=== PATIENT | male | born 1945 | race Caucasian/White ===

== ENCOUNTER 2019-05-10 23:22 | Observation (INO) | payer MEDICARE ==
[~2019-05-10] VITALS: Ht 167.7 cm; Wt 86.0 kg
[~2019-05-10 23:22] MED LIST: ASP81TEC PO; ATEN50TA PO; ATOR10TA66 PO; CEPH500C PO; CLOP75TA PO; HYDR12.56 PO; LISI1TAB PO; LISI20TA PO; LISINOPRIL; SILD50TA PO; SIMV20TA3 PO; TICA90TA PO; TRAM50TA2 PO
--- NOTE | 2019-05-10 23:59 | ED Chest Pain ---
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 PT STATES HE JUST RETURNED FROM [place] AND HE THINKS HE MAY HAVE CAUGHT A COLD. Nursing Sepsis Screen: No Definite Risk History of Present Illness Date Seen by Provider: May 10, 2019 Time Seen by Provider: 23:30 Initial Comments The patient is a 74-year-old male with a history of hypertension, hyperlipidemia, coronary artery disease status post TN and stenting 2, history of prior ischemic stroke which apparently occurred during a heart catheterization. The patient presents with concern for acute onset of dull, substernal, pressurelike, band-like exertional chest discomfort with onset about 3 hours prior to arrival. Patient states he had been doing some relatively heavy exertion, moving boxes about at his home, when he noticed acute onset of the above chest pain. Discomfort was nonradiating, about 8/10 in severity, and it seemed to get better with rest and in fact is only a 1-2 out of 10 in severity now. Associated nausea but no vomiting. No associated fevers, cough, shortness of breath, cold sweats or chills, abdominal pain, flank pain, back austin n. Patient is resting comfortably in no acute distress upon initial evaluation in the emergency department and vital signs are appropriate aside from a degree of hypertension. Allergies and Home Medications Allergies Coded Allergies: No Known Drug Allergies (Unverified , 07/19/10) Home Medications Aspirin 81 Mg Tabec, 81 MG PO DAILY, (Reported) Atenolol 50 Mg Tablet, 50 MG PO DAILY, (Reported) Atorvastatin Calcium 10 Mg Tablet, 10 MG PO DAILY Prescribed by: JAIME RAJPUT on 03/05/15 1226 Clopidogrel Bisulfate 75 Mg Tablet, 75 MG PO DAILY, (Reported) Hctz/Lisinopril 1 Each Tablet, 1 TAB PO DAILY, (Reported) Patient Home Medication List Home Medication List Reviewed: Yes Review of Systems Review of Systems Constitutional: see HPI All Other Systems Reviewed Negative Unless Noted: Yes (Negative excepted noted.) Past Hspsaey-Ogvzgt-Snvhgn Hx Past Med/Social Hx: Reviewed Nursing Past Med/Soc Hx Patient Social History Recent Foreign Travel: No Contact w/Someone Who Travel: No Recent Infectious Disease Expo: No Physical Abuse: No Sexual Abuse: No Mistreated: No Fear: No Immunizations Up To Date Tetanus Booster (TDap): Less than 5yrs Seasonal Allergies Seasonal Allergies: No Past Medical History Appendectomy, Cardiac, CABG, Coronary Stent, Pancreatic COPD Currently Using CPAP: No Currently Using BIPAP: No Coronary Artery Disease, Heart Attack, High Cholesterol, Hypertension Headaches /Migraines, Seizure Disorder Reproductive Disorders: No Sexually Transmitted Disease: No HIV/AIDS: No Kidney Stones Gastroesophageal Reflux, Liver Disease/Jaundice, Pancreatitis, Hepatitis, Gall Bladder Disease Degenerate Disk Disease, Back Injury, Chronic Back Pain Family Medical History Reviewed Nursing Family Hx Cardiovascular disease 19 FATHER Completed stroke 19 FATHER Diabetes mellitus G8 SISTER Myocardial infarction 19 FATHER 19 MOTHER Physical Exam Vital Signs Vital Signs - First Documented 05/10/19 23:41 Temp 37.0 Pulse 70 Resp 17 B/P (MAP) 175/81 (112) O2 Delivery Room Air Capillary Refill : Less Than 3 Seconds Height, Weight, BMI Height: 5'6.00" Weight: 186lbs. 12.0oz. 84.966709vy; 31.00 BMI Method:Stated General Appearance: No Apparent Distress Other comments This is an elderly male appearing nontoxic and in no acute distress. Head is normocephalic and atraumatic. Neck is supple and nontender. Oropharynx is moist. Lungs clear to auscultation in all stations. There is a normal S1 and S2 without rubs or gallops and capillary refill is appropriate, less than 2 seconds globally. Pulses are equal in bilateral upper and lower extremities. Abdomen is soft, nontender and nondistended. Skin is warm and dry without cyanos is, clubbing or edema. Psychiatrically, the patient demonstrated appropriate mood and affect and is alert. Progress/Results/Core Measures Results/Orders Lab Results Laboratory Tests Test 05/10/19 00:01 Range/Units White Blood Count 9.0 4.3-11.0 10^3/uL Red Blood Count 3.98 L 4.35-5.85 10^6/uL Hemoglobin 14.0 13.3-17.7 G/DL Hematocrit 40 40-54 % Mean Corpuscular Volume 101 H 80-99 FL Mean Corpuscular Hemoglobin 35 H 25-34 PG Mean Corpuscular Hemoglobin Concent 35 32-36 G/DL Red Cell Distribution Width 13.7 10.0-14.5 % Platelet Count 166 130-400 10^3/uL Mean Platelet Volume 10.3 7.4-10.4 FL Neutrophils (%) (Auto) 80 H 42-75 % Lymphocytes (%) (Auto) 10 L 12-44 % Monocytes (%) (Auto) 9 0-12 % Eosinophils (%) (Auto) 0 0-10 % Basophils (%) (Auto) 0 0-10 % Neutrophils # (Auto) 7.2 1.8-7.8 X 10^3 Lymphocytes # (Auto) 0.9 L 1.0-4.0 X 10^3 Monocytes # (Auto) 0.8 0.0-1.0 X 10^3 Eosinophils # (Auto) 0.0 0.0-0.3 10^3/uL Basophils # (Auto) 0.0 0.0-0.1 10^3/uL Prothrombin Time 13.2 12.2-14.7 SEC INR Comment 1.0 0.8-1.4 Activated Partial Thromboplast Time 27 24-35 SEC Sodium Level 139 135-145 MMOL/L Potassium Level 4.1 3.6-5.0 MMOL/L Chloride Level 103 98-107 MMOL/L Carbon Dioxide Level 22 21-32 MMOL/L Anion Gap 14 5-14 MMOL/L Blood Urea Nitrogen 14 7-18 MG/DL Creatinine 0.95 0.60-1.30 MG/DL Estimat Glomerular Filtration Rate > 60 BUN/Creatinine Ratio 15 Glucose Level 117 H 70-105 MG/DL Calcium Level 9.3 8.5-10.1 MG/DL Corrected Calcium 9.3 8.5-10.1 MG/DL Total Bilirubin 0.8 0.1-1.0 MG/DL Aspartate Amino Transf (AST/SGOT) 25 5-34 U/L Alanine Aminotransferase (ALT/SGPT) 17 0-55 U/L Alkaline Phosphatase 60 40-136 U/L Troponin I < 0.30 <0.30 NG/ML Pro-B-Type Natriuretic Peptide 593.2 H <75.0 PG/ML Total Protein 7.5 6.4-8.2 GM/DL Albumin 4.0 3.2-4.5 GM/DL My Orders Orders - THIAGO DIAZ MD Cbc With Automated Diff (05/10/19 23:52) Comprehensive Metabolic Panel (05/10/19 23:52) Troponin I Fs (05/10/19 23:52) Ekg Tracing (05/10/19 23:52) Chest 1 View Ap/Pa Only (05/10/19 23:52) Protime With Inr (05/10/19 23:52) Partial Thromboplastin Time (05/10/19 23:52) Probnp Fs (05/10/19 23:52) Aspirin Chewable Tablet (Baby Aspirin Ch (05/11/19 00:00) Nitroglycerin 0.4 Mg Btl 25's (Nitrostat (05/11/19 00:45) Medications Given in ED Current Medications Medications Dose Ordered Sig/Osiel Route Start Time Stop Time Status Last Admin Dose Admin Aspirin 324 mg ONCE ONCE PO 05/11/19 00:00 05/11/19 00:01 DC 05/10/19 23:59 324 MG Vital Signs/I&O 05/10/19 05/10/19 23:41 23:53 Temp 37.0 Pulse 70 Resp 17 B/P (MAP) 175/81 (112) O2 Delivery Room Air Room Air Blood Pressure Mean: 112 POS Progress Progress Note : Time: 00:21 Progress Note Elderly male with multiple risk factors for acute coronary syndrome who presents with a rather suspicious episode of dull, bandlike, substernal chest discomfort with onset during exertion. HEART score 5 at minimum. Plan for labs and EKG and chest x-ray and an aspirin and will give a sublingual nitroglycerin as well. Patient will minimally be an admission for observation on telemetry, attention from cardiology and further care as indicated. He and his understand and agree with this plan of care. Update 0040: Workup unremarkable and reassuring as above. We'll proceed with admission to [facility] for observation on telemetry, serial cardiac biomarkers, attention from cardiology and further care as indicated. Patient and family understand and agree with this plan of care. Dr. Min graciously accepts. Comment Sinus rhythm, rate 69, right ventricular conduction delay, no acute ST elevation or depression, [place] 234, QRS 113, QTC 452, EP interpretation. Diagnostic Imaging Diagonstic Imaging: Xray Comments No acute cardiopulmonary process on CXR, EP interp Departure Impression Primary Impression: Other chest pain Disposition: ADMITTED INPATIENT Condition: Stable Departure-Patient Inst. Referrals: TIFFANIE SPEAR MD (PCP/Family) Primary Care Physician THIAGO DIAZ MD May 10, 2019 23:59 POS
[2019-05-11] VITALS (11 sets, daily range): BP systolic 121–169; BP diastolic 66–79
[2019-05-11] MEDS ORDERED: ASPIRIN 81 MG CHEW (CHILDREN'S ASA) PO ONE
[2019-05-11 00:08] LABS: BASOPHILS % (AUTO) 0 % (0-10); EOSINOPHILS % (AUTO) 0 % (0-10); HEMATOCRIT 40 % (40-54); LYMPHOCYTES % (AUTO) 10 % (12-44); MEAN CORPUSCULAR HEMOGLOBIN 35 PG (25-34); MEAN CORPUSCULAR HGB CONC 35 G/DL (32-36); MEAN CORPUSCULAR VOLUME 101 FL (80-99); MEAN PLATELET VOLUME 10.3 FL (7.4-10.4); MONOCYTES % (AUTO) 9 % (0-12); NEUTROPHILS # (AUTO) 7.2 X 10^3 (1.8-7.8); NEUTROPHILS % (AUTO) 80 % (42-75); PLATELET COUNT 166 10^3/uL (130-400); RED CELL DISTRIBUTION WIDTH 13.7 % (10.0-14.5)
[2019-05-11 00:09] LABS: LYMPHOCYTES # (AUTO) 0.9 X 10^3 (1.0-4.0); MONOCYTES # (AUTO) 0.8 X 10^3 (0.0-1.0)
[2019-05-11 00:22] LABS: PROTHROMBIN TIME PATIENT 13.2 SEC (12.2-14.7)
[2019-05-11 00:34] LABS: ALANINE AMINOTRANSFERASE 17 U/L (0-55); ALKALINE PHOSPHATASE 60 U/L (40-136); BILIRUBIN,TOTAL 0.8 MG/DL (0.1-1.0); BUN/CREATININE RATIO 15; CALCIUM 9.3 MG/DL (8.5-10.1); CARBON DIOXIDE 22 MMOL/L (21-32); CHLORIDE 103 MMOL/L (98-107); CREATININE SERUM 0.95 MG/DL (0.60-1.30); GFR ESTIMATED > 60; GLUCOSE 117 MG/DL (70-105); POTASSIUM 4.1 MMOL/L (3.6-5.0); SODIUM 139 MMOL/L (135-145)
[2019-05-11 00:35] LABS: TOTAL PROTEIN 7.5 GM/DL (6.4-8.2)
[2019-05-11] MEDS: NITROGLYCERIN 0.4 MG SL TABS BTL 25'S SL PRN ×5 (01:20→19:53)
--- NOTE | 2019-05-11 03:00 | NUR ---
WES ARRIOLA] admitted to room 511-1, with an admitting diagnosis of CHEST PAIN , on 05/11/19 from [facility] via , accompanied by .WES ARRIOLA introduced to surroundings, call light, bed controls, phone, TV, temperature control, lights, meal times, smoking policy, visitor policy, side rail policy, bathrooms and showers. Patient Rights given to patient in the handbook.WES ARRIOLA verbalizes understanding that [facility] is not responsible for the loss or damage to any personal effects or valuables that are kept in the patients possession during their hospitalization. The following Patient Care Plans were discussed with the : Discharge Planning, ,, and .
[2019-05-11 06:04] LABS: BASOPHILS % (AUTO) 0 % (0-10); EOSINOPHILS # (AUTO) 0.1 10^3/uL (0.0-0.3); EOSINOPHILS % (AUTO) 1 % (0-10); HEMATOCRIT 38 % (40-54); HEMOGLOBIN 13.5 G/DL (13.3-17.7); LYMPHOCYTES % (AUTO) 12 % (12-44); MEAN CORPUSCULAR HEMOGLOBIN 35 PG (25-34); MEAN CORPUSCULAR HGB CONC 35 G/DL (32-36); MEAN CORPUSCULAR VOLUME 99 FL (80-99); MEAN PLATELET VOLUME 10.5 FL (7.4-10.4); MONOCYTES # (AUTO) 0.7 X 10^3 (0.0-1.0); MONOCYTES % (AUTO) 9 % (0-12); NEUTROPHILS # (AUTO) 6.6 X 10^3 (1.8-7.8); NEUTROPHILS % (AUTO) 79 % (42-75); PLATELET COUNT 152 10^3/uL (130-400); WHITE BLOOD COUNT 8.4 10^3/uL (4.3-11.0)
[2019-05-11 06:26] LABS: ALANINE AMINOTRANSFERASE 18 U/L (0-55); ALBUMIN 3.8 GM/DL (3.2-4.5); ALKALINE PHOSPHATASE 57 U/L (40-136); BILIRUBIN,TOTAL 1.2 MG/DL (0.1-1.0); BUN/CREATININE RATIO 14; CALCIUM 9.1 MG/DL (8.5-10.1); CARBON DIOXIDE 19 MMOL/L (21-32); CHLORIDE 106 MMOL/L (98-107); GFR ESTIMATED > 60; GLUCOSE 123 MG/DL (70-105); POTASSIUM 3.9 MMOL/L (3.6-5.0); SODIUM 138 MMOL/L (135-145); TOTAL PROTEIN 7.1 GM/DL (6.4-8.2)
[2019-05-11] MEDS ORDERED: ACETAMINOPHEN 325 MG TABLET PO PRN (07:30)
[2019-05-11] MEDS ORDERED: MELATONIN 3 MG TABLET PO PRN (07:30)
[2019-05-11] MEDS ORDERED: ONDANSETRON 4 MG (ZOFRAN) ORAL DISSOLVE TAB PO PRN (07:30)
[2019-05-11] MEDS ORDERED: ONDANSETRON 4 MG/2 ML (SDV) Z0FRAN IV PRN (07:30)
[2019-05-11] MEDS ORDERED: POLYETHYLENE GLYCOL 17 GM (MIRALAX) PACK PO PRN (07:30)
--- NOTE | 2019-05-11 07:45 | Consultation-Cardiology ---
HPI-Cardiology Cardiology Consultation Date of Consultation 05/11/19 Date of Admission Time Seen by Provider: 07:39 Indication: Chest pain HPI 74 years old gentleman with extensive cardiac history involving coronary artery disease with CABG 6 done in 2002, the catheter report from [address] Otto reporting 3 bypasses only, the procedure was diagnostic procedure compl icated by acute embolic stroke, resolved after receiving TPA. Had a stress test earlier this year in [facility] [place] and I recommended cardiac catheterization. Has been doing well until yesterday evening when he was working in his house, started having some chest pain described it as dull achiness in the upper epigastric area, mild chest discomfort, back pain, this morning he is having more back pain and epigastric pain. No shortness of breath. No palpitation. No syncope or near syncopal episodes. Does not follow up with a balance assembler at this time Home Medications & Allergies Allergies: Coded Allergies: No Known Drug Allergies (Unverified , 07/19/10) Home Medication List Reviewed: Yes SGS-Cxkzox-Qyoevn Hx Patient Social History Marital Status: Employed/Student: retired Alcohol Use: Past History Recreational Drug Use: Yes (HX OF IV DRUG USE, HEPATITIS C POSITIVE) Smoking Status: Former Smoker Former smoker/When Quit: October 30, 1989 Type Used: Cigarettes 2nd Hand Smoke Exposure: No Recent Foreign Travel: No Recent Infectious Disease Expo: No Recent Hopitalizations: No Immunizations Up To Date Tetanus Booster (TDap): Less than 5yrs Past Medical History Discussed below Family Medical History Family History: Cardiovascular disease 19 FATHER Completed stroke 19 FATHER Diabetes mellitus G8 SISTER Myocardial infarction 19 FATHER 19 MOTHER Review of Systems-General Review of Systems Constitutional: see HPI EENTM: see HPI, no symptoms reported Respiratory: see HPI; No cough, No dyspnea on exertion, No hemoptysis, No orthopnea, No phlegm, No short of breath, No stridor, No wheezing, No other Cardiovascular: see HPI, chest pain; No edema, No Hx of Intervention, No palpitations, No syncope, No vascular heart diseas, No other Gastrointestinal: RUQ, LUQ, see HPI Genitourinary: see HPI Musculoskeletal: see HPI, back pain, joint pain Skin: no symptoms reported, see HPI Psychiatric/Neurological: No Symptoms Reported, See HPI All Other Systems Reviewed Negative Unless Noted: Yes (Negative excepted noted.) Reviewed Test Results Reviewed Test Results Lab Laboratory Tests Test 05/11/19 05:57 Range/Units White Blood Count 8.4 4.3-11.0 10^3/uL Red Blood Count 3.86 L 4.35-5.85 10^6/uL Hemoglobin 13.5 13.3-17.7 G/DL Hematocrit 38 L 40-54 % Mean Corpuscular Volume 99 80-99 FL Mean Corpuscular Hemoglobin 35 H 25-34 PG Mean Corpuscular Hemoglobin Concent 35 32-36 G/DL Red Cell Distribution Width 14.0 10.0-14.5 % Platelet Count 152 130-400 10^3/uL Mean Platelet Volume 10.5 H 7.4-10.4 FL Neutrophils (%) (Auto) 79 H 42-75 % Lymphocytes (%) (Auto) 12 12-44 % Monocytes (%) (Auto) 9 0-12 % Eosinophils (%) (Auto) 1 0-10 % Basophils (%) (Auto) 0 0-10 % Neutrophils # (Auto) 6.6 1.8-7.8 X 10^3 Lymphocytes # (Auto) 1.0 1.0-4.0 X 10^3 Monocytes # (Auto) 0.7 0.0-1.0 X 10^3 Eosinophils # (Auto) 0.1 0.0-0.3 10^3/uL Basophils # (Auto) 0.0 0.0-0.1 10^3/uL Sodium Level 138 135-145 MMOL/L Potassium Level 3.9 3.6-5.0 MMOL/L Chloride Level 106 98-107 MMOL/L Carbon Dioxide Level 19 L 21-32 MMOL/L Anion Gap 13 5-14 MMOL/L Blood Urea Nitrogen 13 7-18 MG/DL Creatinine 0.90 0.60-1.30 MG/DL Estimat Glomerular Filtration Rate > 60 BUN/Creatinine Ratio 14 Glucose Level 123 H 70-105 MG/DL Calcium Level 9.1 8.5-10.1 MG/DL Corrected Calcium 9.3 8.5-10.1 MG/DL Total Bilirubin 1.2 H 0.1-1.0 MG/DL Aspartate Amino Transf (AST/SGOT) 26 5-34 U/L Alanine Aminotransferase (ALT/SGPT) 18 0-55 U/L Alkaline Phosphatase 57 40-136 U/L Troponin I < 0.028 <0.028 NG/ML Total Protein 7.1 6.4-8.2 GM/DL Albumin 3.8 3.2-4.5 GM/DL Physical Exam Physical Exam Vital Signs Vital Signs - First Documented 05/10/19 05/11/19 23:41 02:31 Temp 37.0 Pulse 70 Resp 17 B/P (MAP) 175/81 (112) Pulse Ox 98 O2 Delivery Room Air Capillary Refill : Less Than 3 Seconds Height, Weight, BMI Height: 5'6.00" Weight: 186lbs. 12.0oz. 84.581128gt; 31.29 BMI Method:Stated General Appearance: No Apparent Distress Eyes: Bilateral Eye Normal Inspection, Bilateral Eye PERRL, Bilateral Eye EOMI HEENT: PERRL/EOMI, TMs Normal, Normal ENT Inspection, Pharynx Normal, Moist Mucous Membranes Neck: Full Range of Motion, Normal Inspection, Non Tender, Supple, Carotid Bruit Respiratory: Chest Non Tender, Normal Breath Sounds, No Accessory Muscle Use, No Respiratory Distress Cardiovascular: Regular Rate, Rhythm, No Edema, No Gallop, No JVD, No Murmur, Normal Peripheral Pulses Gastrointestinal: Normal Bowel Sounds, No Organomegaly, No Pulsatile Mass, Non Tender, Soft Back: Normal Inspection, No CVA Tenderness, No Vertebral Tenderness Extremity: Normal Capillary Refill, Normal Inspection, Normal Range of Motion, Non Tender, No Calf Tenderness, No Pedal Edema Neurologic/Psychiatric: Alert, Oriented x3, No Motor/Sensory Deficits, Normal Mood/Affect Skin: Normal Color, Warm/Dry Lymphatic: No Adenopathy A/P-Cardiology Admission Diagnosis Chest pain Coronary artery disease Hypertension Hyperlipidemia Assessment/Plan Chest pain, atypical in presentation, mainly back pain and upper epigastric pain, EKG and cardiac enzymes are normal, patient had extensive history indicat ing high risk of angina. I am starting him on long-acting nitroglycerin and evaluate his tolerance and response. Coronary artery disease history of CABG done in 2002, cardiac catheterization done [place] [address] Otto reported to have totally occluded LAD and right coronary artery with 60 percent proximal circumflex artery disease, the vein graft to the obtuse marginal branch is occluded, the STAFFORD is tortuous artery supplying the diagonal artery then jump graft to the LAD, the LAD is a very small artery and has severe stenosis at the anastomosis point not amendable to intervention, treated medically and recommendation for high risk intervention if needed at that time was made History of acute embolic stroke during cardiac catheterization occurred in 2016 and required TPA and reported full resolution of his symptoms, had multiple embolic and thalamic stroke, has been doing well since then. Hypertension maintain on atenolol and lisinopril, restart the medications and monitor Questionable hyperlipidemia, not taking any statin, I had a long discussion with him and recommended initiating statin and he agreed Patient was complex management issue especially with his extensive cardiac history, had an abnormal stress test done in [facility] earlier this year, d iscussed the possibility of cardiac catheterization and the risks versus the benefits, patient prefer to try medical therapy due to the risk of stroke that is considered high in his condition. I will continue maximizing medical therapy and monitor him closely Clinical Quality Measures AMI/AHF: ASA po Prior to arrival: No DVT/VTE Risk/Contraindication: Risk Factor Score Per Nursin RFS Level Per Nursing on Admit: 2=Moderate AURA TERRY MD May 11, 2019 07:45 POS
--- NOTE | 2019-05-11 07:52 | Diagnostic Imaging Report ---
INDICATION: Chest tightness COMPARISON STUDY: Chest from 03/01/2015. FINDINGS: Frontal view of the chest demonstrate the lungs to be clear. Previous sternotomy changes are present. Heart size and vascularity are normal. There are no pleural effusions. IMPRESSION: There are no acute findings. Dictated by: Dictated on workstation # [id number]
[2019-05-11 07:57] LABS: CHOLESTEROL 173 MG/DL (< 200); HDL CHOLESTEROL 32 MG/DL (40-60); TRIGLYCERIDES 84 MG/DL (<150); VLDL CHOLESTEROL 17 MG/DL (5-40)
[2019-05-11] MEDS ORDERED: LISI1TAB8 PO (08:41)
[2019-05-11] MEDS ORDERED: CLOP75TA69 PO (08:41)
[2019-05-11] MEDS ORDERED: ATEN50TA PO (08:41)
--- NOTE | 2019-05-11 08:44 | NUR ---
SPOKE WITH THE PATIENT ABOUT HIS MEDICATIONS. I CALLED [facility] IN [place] TO SEE WHAT HAS BEEN FILLED RECENTLY. THE PATIENT STATES THIS IS WHERE HE GETS ALL OF HIS MEDICATIONS FILLED. [facility] FILLED: 03-08-19 PLAVIX 75MG DAILY #30 03-08-19 LISINOPRIL HCTZ 20-12.5MG DAILY #30 03-08-19 ATENOLOL 50MG DAILY #30 10-25-18 ATORVASTATIN 40MG #90 (STATES HE HAS NOT BEEN TAKING FOR AWHILE, [facility] ALSO HAD A SCRIPT FOR LIPITOR 80MG DAILY CALLED IN 11-01-18 HOWEVER IT WAS NEVER PICKED UP) PATIENT ALSO STATES HE DOES NOT TAKE ASPIRIN 81MG REGULARLY. I REMOVED THE ASPIRIN AND THE LIPITOR FROM THE MED REC AT THIS TIME, I NOTED THE PAST DUE FILL DATES ON HIS OTHER MEDICATIONS BUT HE DOES STATE HE TAKES THE OTHERS JUST MISSES DOSES.
[2019-05-11] MEDS: DOCUSATE SODIUM 100 MG (COLACE) CAP PO SCH ×2 (08:48→20:28)
[2019-05-11] MEDS: CLOPIDOGREL 75 MG (PLAVIX) TABLET PO SCH (08:48)
[2019-05-11] MEDS: PANTOPRAZOLE 40 MG (PROTONIX) TAB PO SCH (08:49)
[2019-05-11] MEDS: ISOSORBIDE MONONITRATE 30 MG (IMDUR) TAB PO SCH (08:49)
[2019-05-11] MEDS: ATENOLOL 25 MG (TENORMIN) TAB PO SCH (08:49)
[2019-05-11] MEDS: lisINopril 10 MG (PRINIVIL) TABLET PO SCH (08:49)
[2019-05-11] MEDS: ASPIRIN E.C. 81 MG (ECOTRIN) TAB PO SCH (08:49)
[2019-05-11] MEDS ORDERED: lisINopril 40 MG (PRINIVIL) TABLET PO SCH (09:00)
[2019-05-11] MEDS ORDERED: ATENOLOL 50 MG (TENORMIN) TAB PO SCH (09:00)
--- NOTE | 2019-05-11 13:01 | History & Physical-Hospitalist ---
History of Present Illness HPI/Chief Complaint Boby Carr is a 74yoM with PMH HTN, HLD, CAD with history of CABG and complicated catheterization resulting in CVA, who presented with chest pain. He reports a band-like pain across his chest without radiation to the neck, jaw, or arm. He says he is not very active so does not associate the pain with exertion. He denies nausea and vomiting. He denies diaphoresis. He denies dyspnea. He denies fevers and chills. Source: patient Exam Limitations: no limitations Date Seen 05/11/19 Time Seen by a Provider: 09:45 Attending Physician Gracy Min DO PCP John Broderick MD Referring Physician Date of Admission May 11, 2019 at 00:51 Home Medications & Allergies Home Medications Reviewed patient Home Medication Reconciliation performed by pharmacy medication reconciliations trim technician and/or nursing. Patients Allergies have been reviewed. Allergies Allergies Coded Allergies No Known Drug Allergies (Unverified07/19/10) Past [id number]-Nfrlds-Yxxxnq Hx Past Med/Social Hx: Reviewed Nursing Past Med/Soc Hx Patient Social History Marrital Status: Employed/Student: retired Alcohol Use: Past History Recreational Drug Use: Yes (HX OF IV DRUG USE, HEPATITIS C POSITIVE) Smoking Status: Former Smoker Type Used: Cigarettes 2nd Hand Smoke Exposure: No Recent Foreign Travel: No Contact w/other who traveled: No Recent Hopitalizations: No Recent Infectious Disease Expo: No Immunizations Up To Date Tetanus Booster (TDap): Less than 5yrs Seasonal Allergies Seasonal Allergies: No Past Medical History Surgeries: Appendectomy, Cardiac, CABG, Coronary Stent, Pancreatic Currently Using CPAP: No Currently Using BIPAP: No Cardiac: Coronary Artery Disease, Heart Attack, High Cholesterol, Hypertension Neurological: Headaches /Migraines, Seizure Disorder Reproductive: No Sexually Transmitted Disease: No HIV/AIDS: No Genitourinary: Kidney Stones Gastrointestinal: Gastroesophageal Reflux, Liver Disease/Jaundice, Pancreatitis, Hepatitis, Gall Bladder Disease Musculoskeletal: Degenerate Disk Disease, Back Injury, Chronic Back Pain History of Blood Disorders: No Family History Reviewed Nursing Family Hx Cardiovascular disease 19 FATHER Completed stroke 19 FATHER Diabetes mellitus G8 SISTER Myocardial infarction 19 FATHER 19 MOTHER Review of Systems Constitutional: no symptoms reported EENTM: no symptoms reported Respiratory: no symptoms reported Cardiovascular: chest pain Gastrointestinal: no symptoms reported Genitourinary: no symptoms reported Musculoskeletal: no symptoms reported Skin: no symptoms reported Psychiatric/Neurological: No Symptoms Reported Physical Exam Physical Exam Vital Signs Vital Signs - First Documented 05/10/19 05/11/19 23:41 02:31 Temp 37.0 Pulse 70 Resp 17 B/P (MAP) 175/81 (112) Pulse Ox 98 O2 Delivery Room Air Capillary Refill : Less Than 3 Seconds Height, Weight, BMI Height: 5'6.00" Weight: 186lbs. 12.0oz. 84.591826ke; 31.29 BMI Method:Stated General Appearance: No Apparent Distress, WD/WN HEENT: PERRL/EOMI, Pharynx Normal Neck: Normal Inspection, Supple Respiratory: Lungs Clear, Normal Breath Sounds, No Respiratory Distress Cardiovascular: Regular Rate, Rhythm, No Edema, No Murmur Gastrointestinal: Normal Bowel Sounds, Non Tender, Soft Extremity: Normal Inspection, Non Tender, No Pedal Edema Neurologic/Psychiatric: Alert, Oriented x3, Normal Mood/Affect Skin: Normal Color, Warm/Dry Results Results/Procedures Labs Laboratory Tests 05/10/19 00:01 05/11/19 05:57 Patient resulted labs reviewed. Imaging: Reviewed Imaging Report Assessment/Plan Admission Diagnosis Chest pain Admission Status: Observation Assessment and Plan Chest pain CAD HTN HLD CVA -Continue ASA and Plavix -Continue Lisinopril -Cardiology consulted, planning for medical management -Begin statin -Begin Imdur DVT Prophylaxis: Lovenox Diagnosis/Problems Diagnosis/Problems (1) Chest pain Status: Acute (2) CAD (coronary artery disease) Status: Chronic Clinical Quality Measures AMI/AHF: ASA po Prior to arrival: No DVT/VTE Risk/Contraindication: Risk Factor Score Per Nursin RFS Level Per Nursing on Admit: 2=Moderate ERMELINDA BRIAN MD May 11, 2019 13:01 POS
[2019-05-11] MEDS: ENOXAPARIN 40 MG/0.4 ML (LOVENOX) SYR SC SCH (14:01)
--- NOTE | 2019-05-11 20:03 | NUR ---
TIMELINE NOTE BELOW 05/11/19 AT 1935: INITIAL ASSESSMENT COMPLETED BY THIS RN. PT C/O CP 01/04, STATED "IT IS CONTINUOUS." PT POINTED AT ABDOMEN AND STATED IT WAS IN HIS CHEST AND OVER HIS DIAPHRAGM AREA. 1937: BP TAKEN 132/72, 0.4MG NITRO SUBLINGUAL GIVEN. 1942: BP TAKEN 125/67, PT STATED PAIN A 5/10. 1947: BP TAKEN 142/68, PT STATED IT IS NOT LONGER PAIN BUT DISCOMFORT, RATED 4/10. EKG OBTAINED, STAT ORDER PLACED BY THIS RN. 1952: BP TAKEN 137/69, 0.4MG NITRO SUBLINGUAL GIVEN. 1957: BP TAKEN 124/66, PT STATED DISCOMFORT, RATED 4/10. PT DECLINED THIRD DOSE DUE TO FEAR OF BLOOD PRESSURE DROPPING TOO LOW. 2002: DR. TERRY NOTIFIED.
[2019-05-11] MEDS ORDERED: LORazepam 0.5 MG (ATIVAN) TABLET PO PRN (21:15)
[2019-05-12] VITALS: BP 139/79
[2019-05-12 04:00] VITALS: BP 111/62
[2019-05-12] MEDS: PANTOPRAZOLE 40 MG (PROTONIX) TAB PO SCH (06:10)
[2019-05-12 08:00] VITALS: BP 139/79
[2019-05-12] MEDS: DOCUSATE SODIUM 100 MG (COLACE) CAP PO SCH (09:00)
--- NOTE | 2019-05-12 09:48 | Cardiology Progress Note ---
Subjective Date Seen by Provider: May 12, 2019 Time Seen by Provider: 09:47 Subjective/Events-last exam patient is laying down in bed, feeling better, had few episode of chest pain yesterday, reporting improvement today. Asking to go home. Review of Systems General: No Chills, No Night Sweats, No Fatigue, No Malaise, No Appetite, No Other HEENT: No Head Aches, No Visual Changes, No Eye Pain, No Ear Pain, No Dysphasia, No Sinus Congestion, No Post Nasal Drip, No Sore Throat, No Other Pulmonary: No Dyspnea, No Cough, No Pleuritic Chest Pain, No Other Cardiovascular: Chest Pain; No: Palpitations, Orthopnea, Paroxysmal Noc. Dyspnea, Edema, Lt Headedness, Other Objective-Cardiology Exam Last Set of Vital Signs Vital Signs 05/12/19 09:02 O2 Delivery Room Air Capillary Refill : Less Than 3 Seconds I&O Intake and Output 05/12/19 00:00 Intake Total 115 ml Output Total 250 ml Balance -135 ml Intake Oral 115 ml Output Urine Total 250 ml # Voids 2 Daily Weight Change No General: Alert, Oriented X3, Cooperative HEENT: Atraumatic, PERRLA Neck: Supple, No JVD, No Thyromegaly Lungs: Clear to Auscultation, Normal Air Movement Heart: Regular Rate, Normal S1, Normal S2, No Murmurs Abdomen: Normal Bowel Sounds, Soft, No Tenderness, No Hepatosplenomegaly, No Masses Extremities: No Clubbing, No Cyanosis, No Edema, Normal Pulses, No Tenderness/Swelling Skin: No Rashes, No Breakdown, No Significant Lesion Neuro: Normal Gait, Normal Speech, Strength at 5/5 X4 Ext, Normal Tone, Sensation Intact Psych/Mental Status: Mental Status NL, Mood NL Results Lab A/P-Cardiology Admission Diagnosis Chest pain Coronary artery disease Hypertension Hyperlipidemia Assessment/Plan Chest pain, atypical in presentation, mainly back pain and upper epigastric pain, EKG and cardiac enzymes are normal, feeling better today. Slight elevation in troponin, probably due to small vessel disease, medical therapy is recommended Coronary artery disease history of CABG done in 2002, cardiac catheterization done [place] [address] Otto reported to have totally occluded LAD and right coronary artery with 60 percent proximal circumflex artery disease, the vein graft to the obtuse marginal branch is occluded, the STAFFORD is tortuous artery supplying the diagonal artery then jump graft to the LAD, the LAD is a very sm all artery and has severe stenosis at the anastomosis point not amendable to intervention, treated medically and recommendation for high risk intervention if needed at that time was made, at this time I recommend conservative management due to his extensive history and known small vessel disease. Planning to discharge and follow-up as an outpatient History of acute embolic stroke during cardiac catheterization occurred in 2016 and required TPA and reported full resolution of his symptoms, had multiple emb olic and thalamic stroke, has been doing well since then. Hypertension, adding isosorbide, monitor as an outpatient Hyperlipidemia, started on Lipitor 20 mg daily, follow-up as an outpatient Patient was complex management issue especially with his extensive cardiac history, had an abnormal stress test done in [facility] earlier this year, discussed the possibility of cardiac catheterization and the risks versus the benefits, patient prefer to try medical therapy due to the risk of stroke that is considered high in his condition. okay for discharge and follow-up as an outpatient Clinical Quality Measures AMI/AHF: ASA po Prior to arrival: No DVT/VTE Risk/Contraindication: Risk Factor Score Per Nursin RFS Level Per Nursing on Admit: 2=Moderate AURA TERRY MD May 12, 2019 09:48 POS
[2019-05-12] MEDS ORDERED: ASPI-983 PO (09:51)
[2019-05-12] MEDS ORDERED: ATOR20TA66 PO (09:51)
[2019-05-12] MEDS ORDERED: Nitroglycerin SL (09:51)
[2019-05-12] MEDS ORDERED: ISOS30TA3 PO (09:51)
[2019-05-12] MEDS ORDERED: PANT40TA3 PO (09:51)
[2019-05-12] MEDS: ASPIRIN E.C. 81 MG (ECOTRIN) TAB PO SCH (10:08)
[2019-05-12] MEDS: CLOPIDOGREL 75 MG (PLAVIX) TABLET PO SCH (10:08)
[2019-05-12] MEDS: ATENOLOL 25 MG (TENORMIN) TAB PO SCH (10:08)
[2019-05-12] MEDS: lisINopril 10 MG (PRINIVIL) TABLET PO SCH (10:08)
[2019-05-12] MEDS: ISOSORBIDE MONONITRATE 30 MG (IMDUR) TAB PO SCH (10:08)
--- NOTE | 2019-05-12 11:19 | Discharge Summary ---
Discharge Summary Hospital Course Hospital Course Date of Admission: May 11, 2019 at 00:51 Admission Diagnosis : Chest pain Family Physician/Provider: John Spear MD Date of Discharge: 05/12/19 Discharge Diagnosis: Chest pain Coronary artery disease Hospital Course: Pt seen and evaluated by Cardiology, note was made of severe coronary artery disease prior and a stroke with a prior cath. Given this, Cardiology discussed with him risks of catheterization and he agreed to continue with medical management. Labs and Pending Lab Test: Laboratory Tests 05/11/19 11:45: Troponin I 0.031H 05/11/19 18:03: Troponin I 0.038H 05/12/19 06:10: Lipase 22 Home Meds Active Pantoprazole Sodium 40 Mg Tablet.dr 40 Mg PO DAILY@0700 Aspirin EC (Aspirin) 81 Mg Tablet.dr 81 Mg PO DAILY [Nitroglycerin] 0.4 MG Btl 0 Mg SL NEEDED PRN Isosorbide Mononitrate ER (Isosorbide Mononitrate) 30 Mg Tab.er.24h 30 Mg PO DAILY Atorvastatin Calcium 20 Mg Tablet 20 Mg PO HS Reported Plavix (Clopidogrel Bisulfate) 75 Mg Tablet 75 Mg PO DAILY LAST FILLED #30 03-08-19 Lisinopril-Hctz 20-12.5 mg Tab (Lisinopril/Hydrochlorothiazide) 1 Each Tablet 1 Tab PO DAILY LAST FILLED #30 03-08-19 Atenolol 50 Mg Tablet 50 Mg PO DAILY LAST FILLED #30 03-08-19 Assessment/Pt DC Instructions Follow up with Dr. Spear on 05/18 at 0940 am. Orders-Post D/C & Referrals Pneu Vac Indicated: Yes Discharge Physical Examination Allergies: Coded Allergies: No Known Drug Allergies (Unverified , 07/19/10) General Appearance: No Apparent Distress, WD/WN Respiratory: Lungs Clear, Normal Breath Sounds Cardiovascular: Regular Rate, Rhythm, No Edema Gastrointestinal: Normal Bowel Sounds Skin: Normal Color, Warm/Dry, Tattoos/Piercings Copy Copies To 1: JOHN SPEAR MD Discharge Summary Date of Admission May 11, 2019 at 00:51 Date of Discharge Discharge Date: May 12, 2019 Admission Diagnosis Chest pain Discharge Diagnosis (1) Chest pain Status: Acute (2) CAD (coronary artery disease) Status: Chronic Clinical Quality Measures AMI/AHF: ASA po Prior to arrival: No DVT/VTE Risk/Contraindication: Risk Factor Score Per Nursin RFS Level Per Nursing on Admit: 2=Moderate ANNETTE OCONNELL MD May 12, 2019 11:18 POS
[2019-05-12 12:00] VITALS: BP 107/57
[2019-05-12] MEDS: ENOXAPARIN 40 MG/0.4 ML (LOVENOX) SYR SC SCH (13:00)
[2019-05-12 14:33] VITALS: BP 132/72
== END 2019-05-12 11:15 | disposition home or self-care (01) ==
LOC: EDUNIT# 23:22 → ER FS 23:24 → CSD 23:25 → UNDOADMOB 05-11 00:51 → CSD 05-11 13:28 → UNDODISOB 05-12 14:30
PROVIDERS: ADMIT Internal Medicine; ATTEND Family Medicine
DX: I25.10 Atherosclerotic heart disease of native coronary artery without angina pectoris (principal); I10 Essential (primary) hypertension; E78.5 Hyperlipidemia, unspecified; I08.1 Rheumatic disorders of both mitral and tricuspid valves; E78.00 Pure hypercholesterolemia, unspecified; G43.909 Migraine, unspecified, not intractable, without status migrainosus; G40.909 Epilepsy, unspecified, not intractable, without status epilepticus; K21.9 Gastro-esophageal reflux disease without esophagitis; G89.29 Other chronic pain; M54.9 Dorsalgia, unspecified; K85.90 Acute pancreatitis without necrosis or infection, unspecified; Z79.02 Long term (current) use of antithrombotics/antiplatelets; Z79.82 Long term (current) use of aspirin; Z79.899 Other long term (current) drug therapy; Z95.0 Presence of cardiac pacemaker; Z86.73 Personal history of transient ischemic attack (TIA), and cerebral infarction without residual deficits; Z87.891 Personal history of nicotine dependence; Z95.5 Presence of coronary angioplasty implant and graft; Z83.3 Family history of diabetes mellitus; Z82.49 Family history of ischemic heart disease and other diseases of the circulatory system
CPT/HCPCS: 36415; 71045; 80053; 80061; 83690; 83880; 84484; 85025; 85610; 85730; 93005; 93306

== ENCOUNTER 2019-06-26 09:38 | Emergency (ER) | payer MEDICARE ==
[~2019-06-26] VITALS: Ht 167.7 cm; Wt 84.0 kg
[~2019-06-26 09:38] MED LIST changes: +ASPI-983 PO; +ATOR20TA66 PO; +CLOP75TA69 PO; +ISOS30TA3 PO; +LISI1TAB8 PO; +Nitroglycerin SL; +PANT40TA3 PO
[2019-06-26] MEDS ORDERED: ORPHENADRINE 60 MG/2 ML (NORFLEX) AMP IM STA (09:52)
[2019-06-26] MEDS ORDERED: KETOROLAC 60 MG/2 ML VIAL IM STA (09:52)
--- NOTE | 2019-06-26 09:59 | ED Neck-Back Pain/Injury ---
General Stated Complaint: BACK PAIN Source of Information: Patient Exam Limitations: No Limitations History of Present Illness Date Seen by Provider: Jun 26, 2019 Time Seen by Provider: 09:54 Initial Comments 74-year-old male presents with back pain. Patient has chronic back pain from "degenerative disease" patient reports that he hurt his back a lot years ago and then started reaggravated about 5 years ago. He reports that often when he does a lot of lifting or activity the pain worsens. Patient reports that he was doing a lot of lifting and movement yesterday and he has pain today and his left lower back. He denies any numbness, tingling, issues with his bowel or bladder or ambulation issues. Patient has no new falls or acute injury besides overuse. Patient has no other systemic complaints. Allergies and Home Medications Allergies Coded Allergies: No Known Drug Allergies (Unverified , 07/19/10) Home Medications Aspirin 81 Mg Tablet., 81 MG PO DAILY Prescribed by: AURA TERRY on 05/12/19950 Atenolol 50 Mg Tablet, 50 MG PO DAILY, (Reported) LAST FILLED #30 03-08-19 Atorvastatin Calcium 20 Mg Tablet, 20 MG PO HS Prescribed by: AURA TERRY on 05/12/19950 Clopidogrel Bisulfate 75 Mg Tablet, 75 MG PO DAILY, (Reported) LAST FILLED #30 03-08-19 Isosorbide Mononitrate 30 Mg Tab.er.24h, 30 MG PO DAILY Prescribed by: AURA TERRY on 05/12/19950 Lisinopril/Hydrochlorothiazide 1 Each Tablet, 1 TAB PO DAILY, (Reported) LAST FILLED #30 03-08-19 Pantoprazole Sodium 40 Mg Tablet., 40 MG PO DAILY@0700 Prescribed by: AURA TERRY on 05/12/19950 [Nitroglycerin] 0.4 MG BTL, 0 MG SL NEEDED PRN for CHEST PAIN Prescribed by: AURA TERRY on 05/12/19950 Patient Home Medication List Home Medication List Reviewed: Yes Review of Systems Constitutional: No chills, No dizziness, No fever, No weakness EENTM: no symptoms reported Respiratory: no symptoms reported Cardiovascular: no symptoms reported Gastrointestinal: no symptoms reported Musculoskeletal: see HPI, back pain Skin: no symptoms reported Psychiatric/Neurological: No Symptoms Reported Past Ajyoulq-Orvehk-Wfoocz Hx Past Med/Social Hx: Reviewed Nursing Past Med/Soc Hx Patient Social History Type Used: Cigarettes 2nd Hand Smoke Exposure: No Recent Foreign Travel: No Recent Hopitalizations: No Immunizations Up To Date Tetanus Booster (TDap): Less than 5yrs Seasonal Allergies Seasonal Allergies: No Past Medical History Surgeries: Yes (ERCP WITH REMOVAL OF GALLSTONES IN PANCREATIC DUCT. ) Appendectomy, Cardiac, CABG, Coronary Stent, Pancreatic Respiratory: Yes COPD Currently Using CPAP: No Currently Using BIPAP: No Cardiac: Yes Coronary Artery Disease, Heart Attack, High Cholesterol, Hypertension Neurological: No Headaches /Migraines, Seizure Disorder Reproductive Disorders: No Sexually Transmitted Disease: No HIV/AIDS: No Genitourinary: Yes Kidney Stones Gastrointestinal: Yes (HEPATITIS C--NO TREATMENT, STATES FROM IV DRUG USE IN S. S/P ERCP.) Gastroesophageal Reflux, Liver Disease/Jaundice, Pancreatitis, Hepatitis, Gall Bladder Disease Musculoskeletal: Yes Degenerate Disk Disease, Back Injury, Chronic Back Pain Endocrine: No HEENT: No Cancer: No Psychosocial: No Integumentary: No Blood Disorders: No Family Medical History Cardiovascular disease 19 FATHER Completed stroke 19 FATHER Diabetes mellitus G8 SISTER Myocardial infarction 19 FATHER 19 MOTHER Physical Exam Vital Signs Capillary Refill : Height, Weight, BMI Height: 5'6.00" Weight: 186lbs. 12.0oz. [id number]; 31.29 BMI Method:Stated General Appearance: No Apparent Distress, WD/WN HEENT: PERRL/EOMI Neck: Full Range of Motion, Normal Inspection, Non Tender Cardiovascular: Regular Rate, Rhythm Respiratory: Chest Non Tender, Lungs Clear, Normal Breath Sounds Back: No Vertebral Tenderness; Other (mild left lumbar tenderness ) Extremity: Normal Range of Motion, Non Tender Neurologic/Psychiatric: Alert, Oriented x3, No Motor/Sensory Deficits, Normal Mood/Affect, documentation specialist II-XII Norm as Tested Skin: Normal Color, Warm/Dry Progress/Results/Core Measures Results/Orders My Orders Orders - YOUSUF AMATO DO Ketorolac Injection (Toradol Injection) (06/26/19 09:52) Norflex 60 Mg Im (06/26/19 09:52) Departure Impression Primary Impression: Chronic lumbar pain Qualified Codes: M54.5 - Low back pain; G89.29 - Other chronic pain Disposition: 01 HOME, SELF-CARE Condition: Stable Departure-Patient Inst. Referrals: TIFFANIE SPEAR MD (PCP/Family) Primary Care Physician Follow-up and 2-3 days for continuation of care, recheck of symptoms Patient Instructions: Low Back Pain in Adults, Do I Need an X-ray (or Other Test) for Low Back Pain?, Low Back Pain (DC) Add. Discharge Instructions: The emergency department focuses on treating and ruling out life threatening diseases. Whenever possible, a diagnosis is given. However, most patients are given and impression based on the history, physical exam, and workup during her brief time in the ER. Information about probable diagnosis and other education material has been provided. Please take time to read and understand this information. It is very important that you follow up with a doctor as discussed during her visit today. Failure to adhere to your follow-up instructions mainly due to severe disability, injury, or so please make sure and keep her appointments. Please keep in mind the emergency department is not designed to be her primary care or "family doctor" and non-urgent issues are best evaluated by an outpatient physician YOUSUF AMATO DO Jun 26, 2019 09:59
[2019-06-26 10:15] VITALS: BP 157/92
== END 2019-06-26 10:16 | disposition home or self-care (01) ==
LOC: ER FS 09:40 → EDUNIT# 09:45 → ER FS 10:16
DX: G89.29 Other chronic pain (principal); M54.5 Low back pain; I10 Essential (primary) hypertension; J44.9 Chronic obstructive pulmonary disease, unspecified; E78.00 Pure hypercholesterolemia, unspecified; I25.2 Old myocardial infarction; I25.10 Atherosclerotic heart disease of native coronary artery without angina pectoris; G43.909 Migraine, unspecified, not intractable, without status migrainosus; G40.909 Epilepsy, unspecified, not intractable, without status epilepticus; K21.9 Gastro-esophageal reflux disease without esophagitis; B19.20 Unspecified viral hepatitis C without hepatic coma; Z87.442 Personal history of urinary calculi; Z79.82 Long term (current) use of aspirin; Z79.02 Long term (current) use of antithrombotics/antiplatelets; Z90.49 Acquired absence of other specified parts of digestive tract; Z95.1 Presence of aortocoronary bypass graft; Z95.5 Presence of coronary angioplasty implant and graft; Z82.49 Family history of ischemic heart disease and other diseases of the circulatory system
CPT/HCPCS: 96372; 99284